=== PATIENT | female | born 1980 | race Caucasian/White ===

== ENCOUNTER 2019-11-14 22:26 | Emergency (ER) | payer OTHER ==
--- NOTE | 2019-11-14 23:29 | ER Document Report ---
ED Medical Screen (RME) - General Stated Complaint: CHEST PAINS,JAW PAIN,LEFT ARM PAIN AND TWITCH Time Seen by Provider: 11/14/19 23:23 Mode of Arrival: Ambulatory Information source: Patient Notes: Otherwise healthy 38-year-old female presenting to the emergency department chief complaint of chest pressure, upper jaw pain and left arm pain. Patient reports all of her symptoms started when she was laying down to go to bed at night. She states that she all of a sudden felt an overwhelming feeling come over her like she could not catch her breath. She states for a few minutes she had some chest pain which resolved, she states that was followed by pain in her left upper jaw and then pain and tingling in her left arm. She denies any nausea or vomiting. She does report that she has a smoker but does not appear to have any other cardiac risk factors. EKG was reviewed by me, shows a sinus rhythm, normal axis, no ST segment elevations or depressions to suggest ischemia. Patient is calm, cooperative, answering all questions appropriately and shows normal vital signs. I have greeted and performed a rapid initial assessment of this patient. A comprehensive ED assessment and evaluation of the patient, analysis of test results and completion of the medical decision making process will be conducted by additional ED providers. I have specifically instructed the patient or family members with the patient to immediately return to any nursing staff should anything change in the patient's condition or with their chief complaint. TRAVEL OUTSIDE OF THE [place] IN LAST 30 DAYS: No - Related Data Allergies/Adverse Reactions: adhesive tape Allergy (Verified 11/14/19 23:17) Past Medical History - Social History Chew tobacco use (# tins/day): No Frequency of alcohol use: Social Drug Abuse: None Physical Exam - Vital signs Vitals: Temp Pulse Resp BP Pulse Ox 98.1 F 87 20 131/79 H 100 11/14/19 22:40 11/14/19 22:40 11/14/19 22:40 11/14/19 22:40 11/14/19 22:40 Course - Vital Signs Vital signs: Temp Pulse Resp BP Pulse Ox 98.1 F 87 20 131/79 H 100 11/14/19 22:40 11/14/19 22:40 11/14/19 22:40 11/14/19 22:40 11/14/19 22:40
--- NOTE | 2019-11-14 23:40 | RADIOLOGY REPORT (SQ) ---
EXAM DESCRIPTION: X-RAY CHEST 2 VIEWS CLINICAL HISTORY: 38 years, Female, chest pain COMPARISON: None. FINDINGS: PA and lateral chest radiographs were performed at 2324 hours on 11/14/2019. The lungs are mildly overinflated and clear. The costophrenic sulci are sharp. The cardiac silhouette, hilar regions, trachea, soft tissues and bony structures are unremarkable aside from degenerative changes. IMPRESSION: Mildly overinflated lungs may be related to reactive airway disease; otherwise, no active cardiopulmonary lesions.
[2019-11-14 23:44] LABS: ABSOLUTE BASOPHILS # (AUTO) 0.1 10^3/uL (0.0-0.2); ABSOLUTE EOSINOPHILS # (AUTO) 0.4 10^3/uL (0.0-0.6); ABSOLUTE LYMPHOCYTES (AUTO) 2.9 10^3/uL (0.5-4.7); ABSOLUTE MONOCYTES (AUTO) 0.7 10^3/uL (0.1-1.4); ABSOLUTE NEUT (AUTO) 4.8 10^3/uL (1.7-8.2); BASOPHILS % (AUTO) 1.1 % (0-2); EOSINOPHILS % (AUTO) 4.9 % (0-6); HEMATOCRIT 38.5 % (36.0-47.0); HEMOGLOBIN 13.8 g/dL (12.0-15.5); LYMPHOCYTES % (AUTO) 32.4 % (13-45); MEAN CORPUSCULAR HEMOGLOBIN 33.5 pg (27.0-33.4); MEAN CORPUSCULAR VOLUME 93 fl (80-97); MONOCYTES % (AUTO) 8.2 % (3-13); PLATELET COUNT 323 10^3/uL (150-450); RED BLOOD COUNT 4.14 10^6/uL (3.72-5.28); RED CELL DISTRIBUTION WIDTH 13.3 % (11.5-14.0); SEGMENTED NEUTROPHILS % (AUTO) 53.4 % (42-78); TOTAL CELLS COUNTED % (AUTO) 100 %; WHITE BLOOD COUNT 9.1 10^3/uL (4.0-10.5)
[2019-11-15 00:03] LABS: ALBUMIN 4.4 g/dL (3.5-5.0); ALKALINE PHOSPHATASE 60 U/L (38-126); ANION GAP 9 (5-19); ASPARTATE AMINO TRANSFERASE 26 U/L (14-36); BILIRUBIN,DIRECT 0.4 mg/dL (0.0-0.4); BILIRUBIN,TOTAL 0.4 mg/dL (0.2-1.3); BLOOD UREA NITROGEN 11 mg/dL (7-20); CALCIUM 9.6 mg/dL (8.4-10.2); CARBON DIOXIDE 27 mmol/L (22-30); CHLORIDE 103 mmol/L (98-107); CREATINE KINASE 107 U/L (30-135); GLUCOSE 88 mg/dL (75-110); POTASSIUM 3.9 mmol/L (3.6-5.0); TOTAL PROTEIN 7.2 g/dL (6.3-8.2)
[2019-11-15 00:21] LABS: CREATINE KINASE MB 2.18 ng/mL (<4.55)
[2019-11-15 00:25] LABS: TROPONIN I < 0.012 ng/mL
[2019-11-15 02:08] VITALS: BP 108/76
--- NOTE | 2019-11-15 02:34 | ER Document Report ---
ED General - General Chief Complaint: Chest Pain > 30 Stated Complaint: CHEST PAINS,JAW PAIN,LEFT ARM PAIN AND TWITCH Time Seen by Provider: 11/14/19 23:23 Mode of Arrival: Ambulatory TRAVEL OUTSIDE OF THE [place] IN LAST 30 DAYS: No - HPI Notes: Patient is a 38-year-old female who presents to the emergency department for evaluation. She was lying in bed when she felt a sudden sense of dread and anxiety. Shortly after she developed left-sided chest pain with radiation and burning into her left jaw. Her left arm felt heavy and she developed numbness and tingling in her left fingers. She felt mildly short of breath. She denied any associated nausea, diaphoresis, near syncope. She states her symptoms persisted until about 20 minutes after arriving here. She denies any chest pain at this time. She states that her left arm is intermittently felt slightly heavy. She has no personal history of blood clots, no prolonged travel, no recent surgeries. She is no personal history of cancer. - Related Data Allergies/Adverse Reactions: adhesive tape Allergy (Verified 11/14/19 23:17) Home Medications: None Past Medical History - General Information source: Patient - Social History Smoking Status: Current Every Day Smoker Chew tobacco use (# tins/day): No Frequency of alcohol use: Social Drug Abuse: None Family History: Other - Only known family history is mother, no medical problems Patient has suicidal ideation: No Patient has homicidal ideation: No Past Surgical History: Reports: Hx Hysterectomy Review of Systems - Review of Systems Cardiovascular: See HPI Musculoskeletal: See HPI -: Yes All other systems reviewed and negative Physical Exam - Vital signs Vitals: Temp Pulse Resp BP Pulse Ox 98.1 F 87 20 131/79 H 100 11/14/19 22:40 11/14/19 22:40 11/14/19 22:40 11/14/19 22:40 11/14/19 22:40 - Notes Notes: This is a very pleasant 38-year-old female who appears her stated age, in no acute distress. Vital signs reviewed, please refer to chart. Head is n ormocephalic, atraumatic. Pupils equal round, reactive to light. Neck is supple without meningismus. Heart is regular rate and rhythm. Lungs are clear to auscultation bilaterally. Abdomen is soft, nontender, normoactive bowel sounds throughout. Extremities without cyanosis, clubbing. Posterior calves are nontender. Peripheral pulses are equal. Skin is warm and dry. Patient is awake, alert, oriented x3. Cranial nerves II - XII are grossly intact without focal neurological deficits. Strength is plus 5 out of 5 bilateral upper and lower extremities. Sensation is intact. Reflexes symmetrical. Intact [id number], rapid alternating movements, [id number]. Course - Re-evaluation Re-evalutation: 11/15/19 02:33 Patient presents emergency department for evaluation of chest pain, shortness of breath. She was initially seen through triage and had laboratory investigations ordered. She is chest pain-free at the time of my initial evaluation. Her first troponin is undetectable. I am unsure of her family history, with the sudden onset of symptoms, I am inclined to evaluate for pulmonary embolus. CT angiogram of the chest is ordered. Patient remained stable at this time. Her EKG shows no signs of acute ischemia or infarction, we will continue to monitor. 11/15/19 02:57 Patient has remained symptomatically improved, has had no chest pain, her left arm sensation has improved as well. She is resting comfortably, her vital signs are stable. Her CT angiogram failed to reveal any acute abnormalities. Her second troponin was undetectable. At this point we discussed her risk factors, the need for primary care follow-up, and her need to quit smoking. She voiced understanding to this and was discharged. She is to return to the ED with worsening. - Vital Signs Vital signs: Temp Pulse Resp BP Pulse Ox 98.1 F 87 20 108/76 99 11/14/19 22:40 11/14/19 22:40 11/15/19 01:01 11/15/19 01:01 11/15/19 01:01 - Laboratory Result Diagrams: 11/14/19 23:30 11/14/19 23:30 Laboratory results interpreted by me: 11/14/19 23:30 MCH 33.5 H - Diagnostic Test Radiology reviewed: Reports reviewed - EKG Interpretation by Me Additional EKG results interpreted by me: 11/15/19 02:34 Sinus mechanism with a rate of 76 bpm. Normal axis and intervals. No acute ST changes concerning for ischemia or infarction. Discharge - Discharge Clinical Impression: Chest pain Condition: Stable Disposition: HOME, SELF-CARE Instructions: Chest Pain of Unclear Cause ([facility]) Additional Instructions: No clear cause was found for your symptoms today. Please follow-up with primary care for further evaluation. You should try to quit smoking as well. If you develop worsening or new concerning symptoms of any sort, return immediately to the emergency department for evaluation.
--- NOTE | 2019-11-15 02:49 | RADIOLOGY REPORT (SQ) ---
EXAM DESCRIPTION: CT CHEST ANGIOGRAPHY WITH IV CONTRAST COMPLETED DATE/TME: 11/15/2019 01:26 CLINICAL HISTORY: excessively anxious, chest heavy, L arm felt weird, L jaw pain. COMPARISON: None Available. TECHNIQUE: CTA of the chest obtained following the uncomplicated intravenous administration of 100 mL Omnipaque 350. 3-D/MIP reformatted images of the chest available for evaluation. FINDINGS: Chest: Pulmonary arteries: Contrast bolus is adequate.No filling defects identified in the pulmonary arteries to suggest pulmonary embolus. Thyroid:No abnormalities of the visualized thyroid. Great Vessels:Great vessels have normal anatomic configuration. Thoracic Aorta:No abnormalities of the thoracic aorta identified. Heart:No cardiomegaly, significant pericardial effusion, or coronary artery atherosclerosis Lymph Nodes:No enlarged mediastinal lymph nodes identified. Esophagus:No abnormalities of the esophagus identified. Other:No additional findings. Lungs:No airspace opacities identified. Pleura:No pleural effusion or pneumothorax. Trachea/Airways:No abnormalities of the visualized trachea or airways. Bones:No destructive osseous lesions. Upper Abdomen:Limited images of the upper abdomen demonstrate no definite abnormalities of visualized portions of the liver, gallbladder, pancreas, spleen, adrenal glands, or kidneys. IMPRESSION: 1. No pulmonary embolus identified. This exam was performed according to our departmental dose-optimization program, which includes automated exposure control, adjustment of the mA and/or kV according to patient size and/or use of iterative reconstruction technique.
--- NOTE | 2019-11-15 06:45 | EKG REPORT ---
SEVERITY:- NORMAL ECG - SINUS RHYTHM : Confirmed by: Juan Richards MD 15-Nov-2019 06:44:46
== END 2019-11-15 03:26 | disposition home or self-care (01) ==
LOC: ER 22:26
DX: R07.9 Chest pain, unspecified (principal); M79.602 Pain in left arm; R68.84 Jaw pain; R06.02 Shortness of breath; F41.9 Anxiety disorder, unspecified; F17.200 Nicotine dependence, unspecified, uncomplicated; Z90.710 Acquired absence of both cervix and uterus
CPT/HCPCS: 36415; 71046; 71275; 80053; 82550; 82553; 84484; 85025; 93005; 93010; 99285